=== PATIENT | female | born 1960 ===

== ENCOUNTER → 2020-01-19 | Outpatient (CLI) | payer OTHER | END | disposition home or self-care (01) | LOC: MRI 11:17 | PROVIDERS: ATTEND Neurological Surgery | DX: M47.892 Other spondylosis, cervical region (principal); M50.00 Cervical disc disorder with myelopathy, unspecified cervical region | CPT/HCPCS: 72141 ==

== ENCOUNTER 2021-09-12 10:00 | Outpatient (CLI) | payer OTHER | END 2021-09-12 10:20 | disposition home or self-care (01) | LOC: EDBD 10:00 → MAMO-SONO 10:00 | PROVIDERS: ATTEND Obstetrics & Gynecology | DX: N64.4 Mastodynia (principal); Z12.31 Encounter for screening mammogram for malignant neoplasm of breast; R07.89 Other chest pain ==

== ENCOUNTER 2021-09-12 11:40 | Outpatient (CLI) | payer OTHER | END 2021-09-12 11:41 | disposition home or self-care (01) | LOC: LAB 11:40 | PROVIDERS: ATTEND Obstetrics & Gynecology | DX: N95.1 Menopausal and female climacteric states (principal) ==